=== PATIENT | female | born 1950 | race Caucasian/White ===

== ENCOUNTER 2016-10-23 08:21 | Day surgery (SDC) ==
[2014-02-11 12:14] VITALS: BMI 26.3
[2016-10-23] MEDS ORDERED: DIPRIVAN 20 ML VIAL IVP ONE (10:25)
[2016-10-23 12:15] VITALS: BP 155/85; TEMP 97.7
--- NOTE | 2016-10-24 09:42 | OP ---
INDICATIONS FOR PROCEDURE: 66-year-old female presents for screening colonoscopy exam. She had a colonoscopy greater than 10 years ago. Apparently there is a family history of colon cancer involving her mother, unknown age. MEDICATIONS: SEE ANESTHESIA NOTES. PROCEDURE: COLONOSCOPY, SNARE POLYPECTOMY, BIOPSY, DANTE INK INJECTION. REPORT: The risks, benefits, alternatives and limitations were discussed in detail with the patient. Informed consent was obtained. After adequate sedation was achieved, a digital rectal exam revealed good tone, no masses. The colonoscope was introduced into the rectum and advanced under direct visual guidance to the cecum. The cecum was identified by the appendiceal orifice and IC valve. I then slowly withdrew the scope in a circumferential manner examining the mucosa quite carefully. I looked on the proximal and distal side of folds and flexures as best as possible. At the hepatic flexure there is a small 6 mm sessile polyp that I removed by snare technique. In the proximal mid transverse colon area there is a raised polyp with what appeared to be central polyp changes. The changes were worrisome for malignant change. This large polyp was not amenable to colonoscopic removal. I biopsied it several times for histological review. I then injected Dante ink on opposite quesada about 1 to 2 cm proximal and again 1 to 2 cm distal to the lesion. I withdrew the scope through the remaining colon noting diverticulosis in the sigmoid area. No other abnormalities noted including on retroflex view of the anal canal. The prep was good. The withdrawal time is 13 minutes and 20 seconds. The patient tolerated the procedure well with stable vital signs and pulse oximetry throughout. IMPRESSION: 1. LARGE APPROXIMATELY 2 CM POLYP NOT AMENABLE TO REMOVAL BY COLONOSCOPIC TECHNIQUE IN THE PROXIMAL MID TRANSVERSE COLON AREA. THIS WAS BIOPSIED AND MARKED WITH DANTE INK. 2. SMALL POLYP REMOVED FROM THE HEPATIC FLEXURE. 3. DIVERTICULOSIS. RECOMMENDATIONS: 1. Await pathology results. 2. Referral to surgery for surgical removal of the large polyp. 3. Repeat colonoscopy examination again in one year. 4. Will see her back in the office as needed and in one year. She will contact us if she has any difficulty getting in to see the surgeon or any other concerns. She will also continue followup with her primary care physician. cc: Dr. Dequan SHEFFIELD
== END 2016-10-23 12:32 | disposition home or self-care (01) ==
LOC: SURG 08:21
PROVIDERS: ATTEND Internal Medicine Gastroenterology
DX: Z12.11 Encounter for screening for malignant neoplasm of colon (principal); D12.3 Benign neoplasm of transverse colon; K57.30 Diverticulosis of large intestine without perforation or abscess without bleeding; Z80.0 Family history of malignant neoplasm of digestive organs

== ENCOUNTER 2017-03-28 11:39 | Outpatient (CLI) ==
[2014-02-11 12:14] VITALS: BMI 26.3
[2017-03-28 12:49] LABS: BASOPHILS # (AUTO) 0.1 K/uL (0-0.2); EOSINOPHILS # (AUTO) 0.2 K/ul (0.0-0.7); EOSINOPHILS % (AUTO) 2.9 % (0.0-7.0); HEMATOCRIT 40.4 % (37.0-47.0); HEMOGLOBIN 13.4 g/dl (12.0-16.0); IMMATURE GRANULOCYTE % (AUTO) 0.2 % (0.0-5.0); LYMPHOCYTES # (AUTO) 2.1 K/uL (0.60-3.4); MEAN CORPUSCULAR HEMOGLOBIN 31.3 pg (27.0-31.0); MEAN CORPUSCULAR HGB CONC 33.2 (31.8-35.4); MEAN CORPUSCULAR VOLUME 94.4 fl (81.0-99.0); MONOCYTES # (AUTO) 0.4 K/uL (0.4-2.0); MONOCYTES % (AUTO) 7.4 (0-10); NEUTROPHILS # (AUTO) 2.5 K/ul (2.0-6.9); NEUTROPHILS % (AUTO) 48.5; PLATELET COUNT 286 10^3/uL (140-440); RED BLOOD COUNT 4.28 10^6/ul (4.20-5.40); WHITE BLOOD COUNT 5.15 K/ul (4.6-10.2)
[2017-03-28 13:04] LABS: ALBUMIN 3.9 g/dL (3.4-5.0); ALBUMIN/GLOBULIN RATIO 1.26; ANION GAP 14.1; BILIRUBIN,TOTAL 0.65 mg/dL (0.00-1.20); BUN/CREATININE RATIO 15.21; CALCIUM 9.3 mg/dL (8.2-10.2); CHOL/HDL RATIO 3.3 (4.5-5.5); CREATININE 0.92 mg/dL (0.60-1.30); POTASSIUM 4.1 mmol/L (3.5-5.10)
[2017-03-28 16:51] LABS: ADD URINE MICROSCOPIC YES; BILIRUBIN,URINE Negative (NEGATIVE); KETONES,URINE Negative (NEGATIVE); LEUKOCYTE ESTERASE ,URINE Negative (NEGATIVE); NITRITE,URINE Negative (NEGATIVE); PROTEIN,URINE Negative (NEGATIVE); URINE, BLOOD Trace-intact (NEGATIVE)
== END 2017-03-28 11:40 | disposition home or self-care (01) ==
LOC: LAB 11:39
PROVIDERS: ATTEND General Practice
DX: E78.5 Hyperlipidemia, unspecified (principal); I26.99 Other pulmonary embolism without acute cor pulmonale; I82.401 Acute embolism and thrombosis of unspecified deep veins of right lower extremity; Z79.899 Other long term (current) drug therapy
CPT/HCPCS: 36415; 80053; 80061; 81001; 85025

== ENCOUNTER 2017-04-01 10:59 | Outpatient (CLI) ==
[2014-02-11 12:14] VITALS: BMI 26.3
--- NOTE | 2017-04-01 11:48 | DI ---
EXAM: Radiographs, cervical spine HISTORY: Initial presentation for neck pain following a fall. COMPARISON: None available. TECHNIQUE: Six views. FINDINGS: There is straightening of the normal lordosis. Alignment is normal. There is moderate l oss of disc height at C5-6 and C6-7 with associated endplate osteophyte formation. Uncovertebral hy pertrophy and facet arthropathy also present, greatest at C5-6 and C6-7. No fracture or subluxation identified. Prevertebral soft tissues are unremarkable. Atherosclerotic calcifications noted. [place] g apices are clear. IMPRESSION: Multilevel degenerative changes without acute fracture.
== END 2017-04-01 11:00 ==
LOC: RAD 10:59
PROVIDERS: ATTEND General Practice
DX: M54.2 Cervicalgia (principal); M50.20 Other cervical disc displacement, unspecified cervical region; W19.XXXA Unspecified fall, initial encounter

== ENCOUNTER 2017-09-12 10:07 | Outpatient (CLI) ==
[2014-02-11 12:14] VITALS: BMI 26.3
--- NOTE | 2017-09-13 10:31 | MAMMO ---
EXAM: Bilateral digital screening mammogram (2-D and 3-D) History: Screening Comparison: Bilateral mammogram 08/27/2016 Findings: MLO and CC views of bilateral breasts demonstrate scattered fibroglandular breast parenchy ma. CAD was reviewed by the radiologist. Tomosynthesis was performed. Stable benign bilateral law st calcifications. There are no dominant masses, no suspicious microcalcifications and no architectu ral distortions Impression: Benign stable mammogram. Recommend followup routine screening mammography in 1 year. BIRADS 2
== END 2017-09-12 10:08 | disposition home or self-care (01) ==
LOC: RAD 10:07
PROVIDERS: ATTEND General Practice
DX: Z12.31 Encounter for screening mammogram for malignant neoplasm of breast (principal)
CPT/HCPCS: 77067

== ENCOUNTER 2017-10-02 13:20 | Outpatient (CLI) ==
[2014-02-11 12:14] VITALS: BMI 26.3
[2017-10-02 13:31] LABS: BASOPHILS % (AUTO) 0.4 % (0.0-3.0); EOSINOPHILS # (AUTO) 0.1 K/ul (0.0-0.7); EOSINOPHILS % (AUTO) 1.8 % (0.0-7.0); HEMATOCRIT 38.2 % (37.0-47.0); HEMOGLOBIN 13.1 g/dl (12.0-16.0); IMMATURE GRANULOCYTE % (AUTO) 0.2 % (0.0-5.0); LYMPHOCYTES # (AUTO) 2.2 K/uL (0.60-3.4); LYMPHOCYTES % (AUTO) 43.4 (10.0-50.0); MEAN CORPUSCULAR HEMOGLOBIN 32.8 pg (27.0-31.0); MEAN CORPUSCULAR HGB CONC 34.3 (31.8-35.4); MEAN CORPUSCULAR VOLUME 95.5 fl (81.0-99.0); MONOCYTES # (AUTO) 0.4 K/uL (0.4-2.0); MONOCYTES % (AUTO) 8.5 (0-10); NEUTROPHILS # (AUTO) 2.3 K/ul (2.0-6.9); NEUTROPHILS % (AUTO) 45.7; PLATELET COUNT 253 10^3/uL (140-440); WHITE BLOOD COUNT 5.07 K/ul (4.6-10.2)
[2017-10-02 13:44] LABS: ALBUMIN 3.7 g/dL (3.4-5.0); ALBUMIN/GLOBULIN RATIO 1.16; ANION GAP 9.7; BILIRUBIN,TOTAL 0.7 mg/dL (0.00-1.20); BUN/CREATININE RATIO 8.79; CALCIUM 9.2 mg/dL (8.2-10.2); CREATININE 0.91 mg/dL (0.60-1.30); POTASSIUM 3.7 mmol/L (3.5-5.10); TOTAL PROTEIN 6.9 g/dL (5.8-8.1)
== END 2017-10-02 13:21 | disposition home or self-care (01) ==
LOC: LAB 13:20
PROVIDERS: ATTEND General Practice
DX: E78.5 Hyperlipidemia, unspecified (principal); K21.9 Gastro-esophageal reflux disease without esophagitis; C18.9 Malignant neoplasm of colon, unspecified; R31.29 Other microscopic hematuria; I26.99 Other pulmonary embolism without acute cor pulmonale; Z79.899 Other long term (current) drug therapy
CPT/HCPCS: 36415; 80053; 80061; 85025

== ENCOUNTER 2017-10-09 10:36 | Outpatient (CLI) ==
[2014-02-11 12:14] VITALS: BMI 26.3
== END 2017-10-09 10:37 | disposition home or self-care (01) ==
LOC: LAB 10:36
PROVIDERS: ATTEND General Practice
DX: R35.0 Frequency of micturition (principal); R39.15 Urgency of urination
CPT/HCPCS: 81001; 87086

== ENCOUNTER 2017-12-24 12:42 | Outpatient (CLI) ==
[2014-02-11 12:14] VITALS: BMI 26.3
--- NOTE | 2017-12-24 13:33 | CT ---
EXAM: CT Abdomen without contrast. CT Pelvis without contrast. HISTORY: Left lower quadrant pain. Frequent urination. COMPARISON: 08/25/2012. TECHNIQUE: Multiple axial images of the abdomen and pelvis were obtained without intravenous contras t. Images were reformatted in the sagittal and coronal plane. FINDINGS: Please note that evaluation of the abdominal and pelvic structures is limited due to lack of intravenous contrast. Right lower lobe calcified granuloma noted. Degenerative changes noted in the spine. Old mild super ior endplate compression deformity of L1 is present. Gallbladder is absent. The liver, pancreas, spleen, and adrenal glands demonstrate normal contour. Punctate nonobstructing left lower pole renal calculus is present. There is no hydronephrosis. Probable duodenal diverticuli. Umbilical hernia contains a loop of small bowel. There is no evidenc e for bowel obstruction. Staple line seen in the right colon. Mild colonic diverticulosis noted. [place] ty demonstrates normal contour. Urinary bladder is collapsed. No free fluid or free air identified . Atherosclerotic calcifications are present. IMPRESSION: 1. Left nephrolithiasis without obstructive uropathy. 2. Mild diverticulosis. 3. Umbilical hernia containing a loop of small bowel. No evidence for bowel obstruction.
== END 2017-12-24 12:43 | disposition home or self-care (01) ==
LOC: RAD 12:42
PROVIDERS: ATTEND General Practice
DX: R31.29 Other microscopic hematuria (principal); R10.32 Left lower quadrant pain
CPT/HCPCS: 81001; 87086

== ENCOUNTER 2017-12-24 16:22 | Outpatient (POV) ==
[2014-02-11 12:14] VITALS: BMI 26.3
== END 2017-12-24 16:23 | disposition home or self-care (01) ==
LOC: OUTPT 16:22
PROVIDERS: ATTEND General Practice
DX: R31.29 Other microscopic hematuria (principal); R10.32 Left lower quadrant pain
CPT/HCPCS: 81001; 87086

== ENCOUNTER 2017-12-31 14:20 | Outpatient (CLI) ==
[2014-02-11 12:14] VITALS: BMI 26.3
== END 2017-12-31 14:21 | disposition home or self-care (01) ==
LOC: FCC-LAB 14:20
PROVIDERS: ATTEND General Practice
DX: R31.29 Other microscopic hematuria (principal)
CPT/HCPCS: 81001

== ENCOUNTER 2018-03-31 11:01 | Outpatient (CLI) | payer OTHER ==
[2014-02-11 12:14] VITALS: BMI 26.3
== END 2018-03-31 11:02 | disposition home or self-care (01) ==
LOC: FCC-LAB 11:01
PROVIDERS: ATTEND General Practice
DX: E78.5 Hyperlipidemia, unspecified (principal); R31.29 Other microscopic hematuria; Z79.899 Other long term (current) drug therapy
CPT/HCPCS: 36415; 80053; 81001; 85025

== ENCOUNTER 2018-04-03 11:06 | Outpatient (CLI) ==
[2014-02-11 12:14] VITALS: BMI 26.3
== END 2018-04-03 11:07 | disposition home or self-care (01) ==
LOC: FCC-LAB 11:06
PROVIDERS: ATTEND General Practice
DX: R82.90 Unspecified abnormal findings in urine (principal)
CPT/HCPCS: 81001

== ENCOUNTER 2018-08-13 14:17 | Outpatient (CLI) | payer OTHER ==
[2014-02-11 12:14] VITALS: BMI 26.3
--- NOTE | 2018-08-14 09:00 | DI ---
EXAM: Three views of the right foot. History: Right foot pain. Findings: No acute fracture or dislocation. Moderate to severe narrowing of the first MTP joint wit h marginal sclerosis and osteophyte formation. Small plantar spur. There is medial soft tissue swel ling at the ankle. Impression: 1. No acute osseous abnormality. 2. 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 3. Medial soft tissue swelling at the ankle. 4. Small plantar spur
== END 2018-08-13 14:18 | disposition home or self-care (01) ==
LOC: RHC-LAB 14:17 → RAD 14:18
PROVIDERS: ATTEND General Practice
DX: M79.671 Pain in right foot (principal)

== ENCOUNTER 2018-11-21 15:31 | Outpatient (CLI) ==
[2014-02-11 12:14] VITALS: BMI 26.3
== END 2018-11-21 15:32 | disposition home or self-care (01) ==
LOC: RHC-LAB 15:31
PROVIDERS: ATTEND General Practice
DX: R05 Cough (principal); R19.7 Diarrhea, unspecified
CPT/HCPCS: 87502

== ENCOUNTER 2018-11-24 09:22 | Outpatient (CLI) ==
[2014-02-11 12:14] VITALS: BMI 26.3
== END 2018-11-24 09:23 | disposition home or self-care (01) ==
LOC: LAB 09:22
PROVIDERS: ATTEND General Practice
DX: R19.7 Diarrhea, unspecified (principal)
CPT/HCPCS: 87493

== ENCOUNTER 2018-12-23 07:55 | Outpatient (CLI) ==
[2014-02-11 12:14] VITALS: BMI 26.3
== END 2018-12-23 07:56 | disposition home or self-care (01) ==
LOC: RHC-LAB 07:55
PROVIDERS: ATTEND General Practice
DX: E78.5 Hyperlipidemia, unspecified (principal); Z79.899 Other long term (current) drug therapy
CPT/HCPCS: 36415; 80053; 80061; 81001; 85025

== ENCOUNTER 2019-03-27 15:37 | Outpatient (CLI) ==
[2014-02-11 12:14] VITALS: BMI 26.3
== END 2019-03-27 15:38 | disposition home or self-care (01) ==
LOC: LAB 15:37
PROVIDERS: ATTEND General Practice
DX: H05.229 Edema of unspecified orbit (principal); H57.9 Unspecified disorder of eye and adnexa
CPT/HCPCS: 36415; 80053; 85025

== ENCOUNTER 2025-08-06 14:40 | Inpatient (IN) ==
[2025-08-06 15:30] LABS: IMMATURE GRANULOCYTE # (AUTO) 0.0 (0.0-1.0); IMMATURE GRANULOCYTE % (AUTO) 0.2 % (0.0-5.0); RDW COEFFICIENT OF VARIATION 12.8 % (11.6-14.8)
[2025-08-06 15:41] LABS: CREATININE 1.82 mg/dL (0.60-1.30)
[2025-08-06] MEDS: INFUVITE ADULT 10 ML in DEXTROSE 5%-NS IV SOLUTION 1,000 ML IV SCH (16:04)
[2025-08-06] MEDS: PEPCID IVP ONE (16:09)
[2025-08-06] MEDS: ZOFRAN SDV IVP STA (16:09)
[2025-08-06 18:01] LABS: CREATININE 1.53 mg/dL (0.60-1.30)
[2025-08-06] MEDS: INFUVITE ADULT IV ONE (18:01)
[2025-08-06 18:28] LABS: MOLECULAR FLU A NEGATIVE BY NAAT (NEGATIVE); MOLECULAR FLU B NEGATIVE BY NAAT (NEGATIVE); SARS COV-2 RNA RAPID NAAT NEGATIVE (NEGATIVE)
--- NOTE | 2025-08-06 19:34 | ED.PDOC ---
General HPI ED Provider: Dr. ROCAEL FUENTES DO Chief Complaint: Dizziness Stated Complaint: 75-year-old female presents to the ER for second day in a row reporting persistent nausea vomiting and diarrhea. She was treated symptomatically and discharged after she improved but returns today with lightheadedness and persistent diarrhea. Denies hematochezia, melena, hemoptysis or hematemesis. Medical history reviewed in chart. Denies fever Time Seen by Provider: 08/06/25 14:46 Information Source: Patient Primary Care Provider: CECE WARNER Nursing and Triage Documentation Reviewed and Agree: Yes Opioid Naive vs. Tolerant What is Opioid Naive?: *Opioid Naive implies the patient is not already taking opioids or not chronically receiving opioids on a daily basis. *PRN dosing is not "usually" associated with tolerance. *Patients are at higher risk of over-sedation and aspiration. What is Opioid Tolerant?: *Opioid Tolerance implies less than the expected response to an opioid. *Acquired tolerance is defined by the patient taking 60mg of oral morphine daily (or equianalgesic dose of another opioid) for 1 week or more. *Often associated with chronic pain. *May take more than usual dose to achieve desired pain control. Review of Systems Review Of Systems Constitutional: Reports No symptoms All Other Systems: Reviewed and Negative [facility] Medical History Gastroesophageal reflux disease K21.9 - Gastro-esophageal reflux disease without esophagitis (ICD-10) Prediabetes R73.03 - Prediabetes (ICD-10) Cervical disc herniation M50.20 - Other cervical disc displacement, unspecified cervical region (ICD- 10) PE (pulmonary thromboembolism) I26.99 - Other pulmonary embolism without acute cor pulmonale (ICD-10) DVT (deep venous thrombosis) I82.409 - Acute embolism and thrombosis of unspecified deep veins of unspecified lower extremity (ICD-10) Family History Mother Cancer Colon FATHER Hypertension SISTER Afib Hypertension Social History Smoking and tobacco status: Never smoker Second hand smoke exposure: Yes Alcohol intake: current Substance use type: does not use Comfort/adventism: Protestant Special comfort needs: No Agree to transfusion: Yes Adopted: No Caregiver/support person: Yes Household members: spouse Lives independently: Yes Financial difficulty paying for basics: not applicable service: No Current occupational status: retired Current occupational exposures/hazards: No Pets and animals: Yes Leisure activites: exercise History of recent travel: No Do you think of yourself as: straight/heterosexual Current gender identity: female Seatbelt use: always Helmet use: No (N/A) 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 Water heater temperature set < 120 degrees: Yes Working smoke detector in home: Yes Fire extinguisher in home: Yes Carbon monoxide detector in home: Yes Surgical History right colon resection 11/2016 Status post cholecystectomy 11/2016 Z90.49 - Acquired absence of other specified parts of digestive tract (ICD- 10) Female Reproductive History Menstrual Hx Hysterectomy: No Hx Tubal Ligation: No Physical Exam Physical Exam Appearance: Reports Well-appearing, No pain distress and Well-nourished Eyes: Reports JARRED, EOMI and Conjunctiva clear ENT: Reports Nose normal and Oropharynx normal Neck: Supple Respiratory: Reports Airway patent and Respirations nonlabored Cardiovascular: Reports RRR and Pulses normal GI/: Reports Soft and Nontender Musculoskeletal: Reports Normal strength and ROM intact Skin: Reports Warm, Dry and Normal color Neurological: Reports Sensation intact, Motor intact, Alert and Oriented Psychiatric: Reports Affect appropriate and Mood appropriate Interpretation EKG Interpretation EKG Interpretation By: ED Physician Time of EKG #1: 15:22 Rate: Tachy (100) Rhythm: Sinus Ectopy: PACs Apex: Left ST Segment: Normal Interpretation: Nonischemic Re-Evaluation Re-Evaluation Additional Comments: 75-year-old female returns to the ER with persistent diarrhea and lightheadedness. Suspect dehydration. Labs do suggest dehydration with acute kidney injury. Workup reviewed from yesterday where the patient had labs and CT imaging done. I do not feel repeat imaging is necessary as she is otherwise afebrile nontoxic. Doubt sepsis vital signs stable. Given the WES, aggressively treated with IV fluids and rechecked with some improvement but not resolution. Patient was given a banana bag. She states that she was feeling better. She has had episodes of diarrhea in the ER. No recent antibiotic use. Doubt C. difficile. Suspect viral enteritis. Discussed with hospital service who is agreeable for admission for observation Physician Progress Note Physician Progress Note: All EKGs and plain film imaging independently reviewed and interpreted by me unless stated otherwise. CTs interpreted by radiology unless otherwise stated. All pediatric patients are accompanied by parent or legal guardian as primary historian and/or validate patient report unless otherwise stated. Course Course 08/06/25 15:23 08/06/25 17:45 Orders, Labs, Meds: Lab Review 08/06/25 08/06/25 08/06/25 15:23 17:45 17:57 WBC 9.13 RBC 4.23 Hgb 13.8 Hct 41.3 MCV 97.6 MCH 32.6 H MCHC 33.4 RDW Coeff of Jose 12.8 Plt Count 240 Immature Gran % (Auto) 0.2 Neut % (Auto) 81.1 H Lymph % (Auto) 8.9 L [place] % (Auto) 8.4 Eos % (Auto) 1.3 Baso % (Auto) 0.1 Neut # (Auto) 7.4 H Lymph # (Auto) 0.8 [place] # (Auto) 0.8 Eos # (Auto) 0.1 Baso # (Auto) 0.0 Immature Gran # (Auto) 0.0 Sodium 130.1 L 130.5 L Potassium 3.29 L 3.10 L Chloride 99.9 102.8 Carbon Dioxide 17.8 L D 19.9 L Anion Gap 15.69 10.90 BUN 19.1 H 19.2 H Creatinine 1.82 H D 1.53 H Estimated GFR (MDRD) 27.00 33.00 BUN/Creatinine Ratio 10.49 12.54 Glucose 129.0 H 213.7 H D Calcium 9.48 8.64 Magnesium 1.61 Total Bilirubin 1.10 AST 28.2 ALT 16.4 Alkaline Phosphatase 85.1 Total Protein 8.23 H Albumin 4.93 Globulin 3.30 Albumin/Globulin Ratio 1.49 Influ A Molecular Assay Negative by naat Influ B Molecular Assay Negative by naat SARS CoV-2 RNA Rapid SYEDA Negative Orders Category Date Time Status ADMIT OBSERVATION [PLACE PATIENT OBSERVATION] .TO ADMISSION 08/06/25 18:50 Active MEDSURG (MONITORED BED) EKG-(ED & IP/OBS ONLY) Stat CARDIO 08/06/25 15:10 Completed TELEMETRY MONITORING TELE CARE 08/06/25 18:50 Active IV [ED IV/MEDIPORT/POWERPORT] .ONCE EMERGENCY 08/06/25 15:10 Active BMP [BASIC METABOLIC PANEL] Stat LAB 08/06/25 17:45 Completed CBC W/ AUTO DIFF Stat LAB 08/06/25 15:23 Completed CMP [COMPREHENSIVE METABOLIC PANEL] Stat LAB 08/06/25 15:23 Completed COVID [SARS COV-2 RNA RAPID SYEDA] Stat LAB 08/06/25 17:57 Completed FLU A & B MOLECULAR [FLU A/B MOLECULAR] Stat LAB 08/06/25 17:57 Completed MAGNESIUM Stat LAB 08/06/25 15:23 Completed URINALYSIS C & S IF INDICATED Stat LAB 08/06/25 15:10 Uncollected 0.9 % Sodium Chloride [Saline Flush] Meds 08/06/25 15:09 Active 1 syr IVF PRN PRN Dextrose 5 % and 0.9 % NaCl [Dextrose 5%-Ns IV Solution Meds 08/06/25 15:30 Active ] 1,000 ml Mvi, Adult No.1 with Vit K [Infuvite Adult] 10 ml IV 1,000 mls/hr Famotidine Inj [Pepcid] Meds 08/06/25 15:09 Discontinued 20 mg IVP ONCE ONE Mvi, Adult No.1 with Vit K [Infuvite Adult] Meds 08/06/25 15:52 Discontinued 10 ml IV .STK-MED ONE Ondansetron HCl/Pf [Zofran Sdv] Meds 08/06/25 15:09 Discontinued 4 mg IVP ONCE STA Medications Generic Name Dose Route Start Last Admin Trade Name Freq PRN Reason Stop Dose Admin Multivitamins/Minerals 10 ml/ 1,010 mls @ 1,000 mls/hr 08/06/25 15:30 08/06/25 16:04 Dextrose/Sodium Chloride IV 1,000 mls/hr .Q1H1M KARI Administration Sodium Chloride 1 syr 08/06/25 15:09 0.9% Sodium Chloride 10 Ml Disp.Syrin IVF PRN PRN To flush IV Discontinued Medications Generic Name Dose Route Start Last Admin Trade Name Freq PRN Reason Stop Dose Admin Famotidine 20 mg 08/06/25 15:09 08/06/25 16:09 Famotidine Inj 20 Mg/2 Ml Vial IVP 08/06/25 15:10 20 mg ONCE ONE Administration Ondansetron HCl 4 mg 08/06/25 15:09 08/06/25 16:09 Ondansetron Hcl/Pf 4 Mg/2 Ml Sdv IVP 08/06/25 15:10 4 mg ONCE STA Administration Vital Signs: Temp Pulse Resp BP Pulse Ox 08/06/25 14:44 97.1 F L 100 16 126/73 96 Discharge Plan Discharge Patient Disposition: PLACED OBSERVATION Discharge Problem: Diarrhea, Enteritis, WES (acute kidney injury), Lightheadedness Did you review [place] [employer] for ALL controlled substances?: Not Applicable ED Provider: ROCAEL FUENTES Condition: Stable
[2025-08-06] MEDS ORDERED: TYLENOL PO PRN (20:28)
[2025-08-06] MEDS: SODIUM CHLORIDE 1,000 ML IV SCH (20:37)
[2025-08-06] MEDS: ZOFRAN SDV IVP PRN (20:48)
[2025-08-06 21:16] VITALS: BMI 21.7
[2025-08-06] MEDS: CRESTOR PO SCH (21:25)
[2025-08-06] MEDS: ELAVIL PO SCH (21:27)
[2025-08-06] MEDS: PROTONIX PO SCH (21:28)
[2025-08-06] MEDS: K-DUR PO ONE (21:28)
[2025-08-06] MEDS: XARELTO PO SCH (21:28)
[2025-08-06] MEDS: IMODIUM PO PRN (21:28)
[2025-08-06] MEDS: NORVASC PO SCH (21:29)
[2025-08-06] MEDS: MAGNESIUM SULF 2 G/50 ML BAG 2 GM/50 ML PIGGYBACK IV ONE (21:29)
[2025-08-07 05:28] LABS: IMMATURE GRANULOCYTE # (AUTO) 0.0 (0.0-1.0); IMMATURE GRANULOCYTE % (AUTO) 0.2 % (0.0-5.0); RDW COEFFICIENT OF VARIATION 12.8 % (11.6-14.8)
[2025-08-07 05:39] LABS: CREATININE 1.55 mg/dL (0.60-1.30)
[2025-08-07] MEDS: POTASSIUM CHLORIDE 20 MEQ/100 ML PREMIX 20 MEQ/100 ML BAG IV ONE (09:48)
--- NOTE | 2025-08-07 10:22 | PCM ---
Date of Service Date Seen by Provider: 08/07/25 Time Seen by Provider: 09:00 Admit Day/Time Admission Date: 08/06/25 Admission Time: 18:50 Reason for Admission Chief Complaint: DEHYDRATION, DIARRHEA, WES Hospital Provider Hospital Provider: SANDRA GONZALEZ PA-C, [facility] Primary Care Physician Primary Care Physician: CECE WARNER History of Present Illness History of Present Illness: Patient is a 75 year old female with a PMH of colon cancer, GERD, DVT, and hyperlipidemia. She originally came to the ER on 08/05 due to nausea, vomiting, and watery diarrhea for 5 days. Labs were normal and abdominal CT showed enterocolitis. Since she was stable she was discharged. She returned to the ER the next day on 08/06 with continuing symptoms along with dizziness and weakness. Labs now showed low sodium, low potassium, and an WES. She was admitted to [facility]. Last night she continued to have diarrhea, getting up every 15-30 minutes to use the bathroom. She had one episode of vomiting at 1 a m. She was able to fall asleep around 1:30 am and had bowel incontinence throughout the night. This morning she has had 4 episodes of watery diarrhea. She denies nausea, abdominal pain, fever, and chills. Case Discussed With Case Discussed With: Patient's case was discussed with the ER Physicians, Dr. Kiser. [facility] Medical History Gastroesophageal reflux disease K21.9 - Gastro-esophageal reflux disease without esophagitis (ICD-10) Prediabetes R73.03 - Prediabetes (ICD-10) Cervical disc herniation M50.20 - Other cervical disc displacement, unspecified cervical region (ICD- 10) PE (pulmonary thromboembolism) I26.99 - Other pulmonary embolism without acute cor pulmonale (ICD-10) DVT (deep venous thrombosis) I82.409 - Acute embolism and thrombosis of unspecified deep veins of unspec ified lower extremity (ICD-10) Surgical History right colon resection 11/2016 Status post cholecystectomy 11/2016 Z90.49 - Acquired absence of other specified parts of digestive tract (ICD- 10) Family History Mother Cancer Colon FATHER Hypertension SISTER Afib Hypertension Social History Smoking and tobacco status: Never smoker Second hand smoke exposure: Yes Alcohol intake: current Substance use type: does not use Comfort/gnosticism: Mormonism Special comfort needs: No Agree to transfusion: Yes Adopted: No Caregiver/support person: Yes Household members: spouse Lives independently: Yes Financial difficulty paying for basics: not applicable service: No Current occupational status: retired Current occupational exposures/hazards: No Pets and animals: Yes Leisure activites: exercise History of recent travel: No Do you think of yourself as: straight/heterosexual Current gender identity: female Seatbelt use: always Helmet use: No (N/A) Drives 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 Water heater temperature set < 120 degrees: Yes Working smoke detector in home: Yes Fire extinguisher in home: Yes Carbon monoxide detector in home: Yes Allergies Allergies Allergy/AdvReac Type Severity Reaction Status Date / Time oxycodone HCl (From Percocet) Allergy Intermediate Swelling Verified 08/06/25 14:59 hydrocodone bitartrate (From Allergy Mild Itching Verified 08/06/25 14:59 Lortab) hydroxyzine HCl (From Allergy Mild Rash Verified 08/06/25 14:59 Vistaril) Sulfa (Sulfonamide Allergy Unknown Unknown Verified 08/06/25 14:59 Antibiotics) butorphanol tartrate (From Allergy Unknown Verified 08/06/25 15:09 Stadol) metronidazole (From Flagyl) Allergy Hives Verified 08/06/25 15:09 Metronidazole HCl (From Allergy Unknown Verified 08/06/25 15:09 Flagyl) Current Medications Home Medications Acetaminophen (Acetaminophen 325 Mg Tablet) 650 mg PO Q4H PRN PRN Reason: Mild Pain Amitriptyline HCl (Amitriptyline Hcl 25 Mg Tablet) 50 mg PO BEDTIME KARI Last Admin: 08/06/25 21:27 Dose: 50 mg Amlodipine Besylate (Amlodipine Besylate 5 Mg Tablet) 2.5 mg PO BEDTIME KARI Last Admin: 08/06/25 21:29 Dose: 2.5 mg Bismuth Subsalicylate (Bismuth Subsalicylate 262 Mg Tab.Chew) 262 mg PO Q6H PRN PRN Reason: Diarrhea Sodium Chloride (Sodium Chloride) 1,000 mls @ 100 mls/hr IV .Q10H KARI Last Admin: 08/07/25 08:45 Dose: 100 mls/hr Loperamide HCl (Loperamide Hcl 2 Mg Tablet) 2 mg PO AFTER LOOSE STOOLS PRN PRN Reason: Diarrhea Last Admin: 08/07/25 06:10 Dose: 2 mg Ondansetron HCl (Ondansetron Hcl/Pf 4 Mg/2 Ml Sdv) 4 mg IVP Q6H PRN PRN Reason: Nausea / Vomiting Last Admin: 08/06/25 20:48 Dose: 4 mg Pantoprazole Sodium (Pantoprazole Sodium 40 Mg Tablet.Dr) 40 mg PO BEDTIME KARI Last Admin: 08/06/25 21:28 Dose: 40 mg Rivaroxaban (Rivaroxaban 10 Mg Tablet) 10 mg PO BEDTIME KARI Last Admin: 08/06/25 21:28 Dose: 10 mg Rosuvastatin Calcium (Rosuvastatin Calcium 10 Mg Tablet) 5 mg PO BEDTIME KARI Last Admin: 08/06/25 21:25 Dose: 5 mg Sodium Chloride (0.9% Sodium Chloride 10 Ml Disp.Syrin) 1 syr IVF PRN PRN PRN Reason: To flush IV takjsrxe-ene-brkfg acid 0.4 mg-lycopene 300 mcg-lutein 250 mcg tablet (Centrum Silver) 1 tab PO BEDTIME 10/23/16 [History Confirmed 08/06/25] amitriptyline 50 mg tablet 50 mg PO QHS #90 tabs 05/02/21 [Rx Confirmed 08/06/25] rosuvastatin 20 mg tablet See Rx Instructions .Route .COMPLEX #90 tabs 05/02/21 [Rx Confirmed 08/06/25] amlodipine 2.5 mg tablet 2.5 mg PO BEDTIME 08/05/25 [History Confirmed 08/06/25] pantoprazole 40 mg tablet,delayed release 40 mg PO BEDTIME 08/06/25 [History Confirmed 08/06/25] rivaroxaban 10 mg tablet (Xarelto) 10 mg PO BEDTIME 08/06/25 [History Confirmed 08/06/25] Opioid Naive vs. Tolerant Does Patient Take Opioids?: No Is Patient Opioid Naive?: No What is Opioid Naive?: *Opioid Naive implies the patient is not already taking opioids or not chronica lly receiving opioids on a daily basis. *PRN dosing is not "usually" associated with tolerance. *Patients are at higher risk of over-sedation and aspiration. Is Patient Opioid Tolerant?: No What is Opioid Tolerant?: *Opioid Tolerance implies less than the expected response to an opioid. *Acquired tolerance is defined by the patient taking 60mg of oral morphine daily (or equianalgesic dose of another opioid) for 1 week or more. *Often associated with chronic pain. *May take more than usual dose to achieve desired pain control. Review of Systems Constitutional: Reports Fatigue and Weakness; Denies Fever, Recent Weight Loss or Chills Head: Reports Normocephalic and Atraumatic Eyes: Denies Blurred vision Cardiovascular: Denies Chest pain Respiratory: Denies Cough or Shortness of air Gastrointestinal: Reports Nausea, Vomiting and Diarrhea; Denies Hematemesis, Hematochezia, Constipation, [place] Stools or Abdominal pain Genitourinary: Reports Incontinent Bowel; Denies Dysuria or Frequency Neurological: Denies Headache or Dizziness Physical examination Most Recent Vital Signs: Most Recent Vital Signs Temperature 96.7 F L 08/07/25 10:00 Temperature Source Tympanic 08/07/25 10:00 Temperature Source Infrared 08/06/25 14:44 Pulse Rate 78 08/07/25 10:00 Respiratory Rate 20 08/07/25 10:00 Blood Pressure 126/66 08/07/25 10:00 Blood Pressure Mean 86 08/07/25 10:00 Blood Pressure Left Arm 114/82 08/06/25 20:15 Blood Pressure Location Left Arm 08/07/25 10:00 Blood Pressure Position Supine 08/07/25 10:00 O2 Sat by Pulse Oximetry 95 08/07/25 10:00 Oxygen Delivery Method Room Air 08/07/25 10:00 Height 5 ft 8 in 08/06/25 20:15 Weight 64.7 kg 08/06/25 20:15 Telemetry Type Remote Telemetry 08/07/25 07:00 Telemetry Monitoring Continues 08/07/25 07:00 Telemetry Heart Rate 71 08/07/25 07:00 EKG WI Interval 0.16 08/07/25 07:00 EKG QRS Interval 0.10 08/07/25 07:00 Telemetry Strip Reading SR 08/07/25 07:00 Appearance: Positive No Apparent Distress, Alert and Oriented x3 and Ill- Appearing Skin: Positive [place] and Warm; Negative Good Turgor HEENT: Positive Normocephalic and Atraumatic; Negative Oral Mucous Moist Neck: Positive Supple Chest/Lungs: Positive Symmetrical With Equal Breath Sounds, Clear to Auscultation Bilaterally and Good Air Movement all 4 Lung [place]; Negative Rales, Rhonci or Wheezes Heart: Positive RRR; Negative Tachycardia or Bracycardia GI/: Positive Soft, Nontender, Bowel Sounds Normal and No Distention Extremities: Negative Edema Neurological: Positive Sensation Intact, Motor intact, Cranial Nerves Intact, Alert and Oriented Psychiatric: Positive Oriented x4, Appropriate Mood and Appropriate Affect Labs This Visit Labs This Visit: Labs This Visit 08/06/25 08/06/25 08/06/25 15:23 17:45 17:57 WBC 9.13 RBC 4.23 Hgb 13.8 Hct 41.3 MCV 97.6 MCH 32.6 H MCHC 33.4 RDW Coeff of Jose 12.8 Plt Count 240 Immature Gran % (Auto) 0.2 Neut % (Auto) 81.1 H Lymph % (Auto) 8.9 L [place] % (Auto) 8.4 Eos % (Auto) 1.3 Baso % (Auto) 0.1 Neut # (Auto) 7.4 H Lymph # (Auto) 0.8 [place] # (Auto) 0.8 Eos # (Auto) 0.1 Baso # (Auto) 0.0 Immature Gran # (Auto) 0.0 Sodium 130.1 L 130.5 L Potassium 3.29 L 3.10 L Chloride 99.9 102.8 Carbon Dioxide 17.8 L D 19.9 L Anion Gap 15.69 10.90 BUN 19.1 H 19.2 H Creatinine 1.82 H D 1.53 H Estimated GFR (MDRD) 27.00 33.00 BUN/Creatinine Ratio 10.49 12.54 Glucose 129.0 H 213.7 H D Calcium 9.48 8.64 Magnesium 1.61 Total Bilirubin 1.10 AST 28.2 ALT 16.4 Alkaline Phosphatase 85.1 Total Protein 8.23 H Albumin 4.93 Globulin 3.30 Albumin/Globulin Ratio 1.49 Influ A Molecular Assay Negative by naat Influ B Molecular Assay Negative by naat SARS CoV-2 RNA Rapid SYEDA Negative 08/07/25 05:17 WBC 4.74 RBC 3.96 L Hgb 12.8 Hct 39.0 MCV 98.5 MCH 32.3 H MCHC 32.8 RDW Coeff of Jose 12.8 Plt Count 212 Immature Gran % (Auto) 0.2 Neut % (Auto) 70.9 Lymph % (Auto) 10.3 [place] % (Auto) 17.1 H Eos % (Auto) 1.3 Baso % (Auto) 0.2 Neut # (Auto) 3.4 Lymph # (Auto) 0.5 L [place] # (Auto) 0.8 Eos # (Auto) 0.1 Baso # (Auto) 0.0 Immature Gran # (Auto) 0.0 Sodium 133.0 L Potassium 3.37 L Chloride 106.7 Carbon Dioxide 18.6 L Anion Gap 11.07 BUN 21.8 H Creatinine 1.55 H Estimated GFR (MDRD) 33.00 BUN/Creatinine Ratio 14.06 Glucose 124.1 H D Calcium 8.97 Magnesium Total Bilirubin 0.89 AST 26.0 ALT 13.0 Alkaline Phosphatase 70.4 Total Protein 7.04 Albumin 4.20 Globulin 2.84 Albumin/Globulin Ratio 1.47 Influ A Molecular Assay Influ B Molecular Assay SARS CoV-2 RNA Rapid SYEDA Microbiology This Visit 08/06/25 21:55 Stool C. difficile DNA Amplification - Final Imaging Imaging: EXAM: CT ABDOMEN AND PELVIS WITHOUT CONTRAST HISTORY: Nausea, emesis, diarrhea. History of right colon cancer status post resection. TECHNIQUE: CT acquisition of the abdomen and pelvis from the lower thorax through the pelvis without IV contrast administration. 2-D coronal and sagittal reformatted images were obtained from the axial source images. Limited diagnostic sensitivity without contrast. Oral Contrast: None. CT Dose Reduction Techniques Performed: Yes. COMPARISON: 12/24/2017. FINDINGS: CT Abdomen: Lung bases are clear. Calcified plaque in a normal caliber aorta. Gallbladder is surgically absent. No associated biliary ductal dilatation. Postoperative prominence of the common bile duct approximating 11 mm without evidence of choledocholithiasis. Stable nonobstructing left intrarenal calculus. More conspicuous 1.4 cm left renal cortical cyst. The proximal urinary tract otherwise appears unremarkable. Normal caliber fluid-filled loops of small bowel with minimal prominence of the bowel wall. Partial fluid-filled appearance of a normal caliber colon. Changes of right colectomy. Otherwise normal caliber and distribution of intraabdominal bowel without ascites or free air. Abdominal and retroperitoneal contents otherwise appear normal. No adenopathy. Stable degenerative spine changes. CT Pelvis: Distal urinary tract appears unremarkable. Grossly normal appearance of the uterus and adnexal structures. Uncomplicated diverticular changes. Partial fluid-filled appearance of the colon. Otherwise normal caliber and distribution of intrapelvic bowel without ascites or free air. Pelvic and retroperitoneal contents appears stable without adenopathy. Interval approximately 20% uniform loss of vertebral body height at L5. Bone alignment is maintained. Stable degenerative changes. IMPRESSION: 1. Probable components of nonspecific enterocolitis with fluid-filled loops of small and large bowel. No evidence of mechanical bowel obstruction, ascites or free air. 2. Stable changes of right colectomy with an intact right abdominal bowel anastomosis. 3. Stable nonobstructive left nephrolithiasis with more conspicuous 1.4 cm probable simple left renal cortical cyst. 4. Interval appearance of a uniform approximately 20% compression deformity at L5 with chronic appearing bone changes. 5. Calcified atherosclerosis without additional acute process identified. Review Statement Review Statement: I have independently reviewed and interpreted the labs/EKGs/imaging that were ordered by the ER provider. I have reviewed all outside records that are available currently in our EMR including imaging/notes/labs from previous visits. Plan Plan: 1. Acute gastroenteritis - IV fluids, imodium PRN, zofran PRN, clear liquids. CT a/p was nonspecific with signs of enterocolitis. C diff negative. O&P and stool culture pending. No recent travel, abx, or sick contacts. 2. Acute kidney injury, stage 1 due to dehydration - Improving but not at baseline, cont IV fluids. 3. Hypokalemia - Replacing potassium IV 4. Hyponatremia - due to dehydration. Improved. Continue NS 5. GERD - Continue home meds 6. Hyperlipidemia - Continue home meds 7. Hypertension - Continue home meds 8. History of DVT - Continue home meds 9. Insomnia - Continue home meds DVT Prophylaxis: Xarelto Time Spent: Greater than 80 minutes spent with patient, 50% of the time spent with this patient was devoted to counseling and coordination of care. [facility] minutes spent discussing advance care planning. Admit to: Obs, made inpatient today due to multiple BMs, renal function not yet at baseline, requiring IV fluids Discussed Plan of Care with Dr. Brooke Vallejo. Medications Medication Orders: Medications Ordered Category Date Time Status 0.9 % Sodium Chloride [Saline Flush] Meds 08/06/25 15:09 Active 1 syr IVF PRN PRN Acetaminophen [Tylenol] Meds 08/06/25 20:28 Active 650 mg PO Q4H PRN Amitriptyline HCl [Elavil] Meds 08/06/25 21:00 Active 50 mg PO BEDTIME Amlodipine Besylate [Norvasc] Meds 08/06/25 21:00 Active 2.5 mg PO BEDTIME Bismuth Subsalicylate [Pepto-Bismol Chew] Meds 08/06/25 20:42 Active 262 mg PO Q6H PRN Loperamide HCl [Imodium] Meds 08/06/25 20:42 Active 2 mg PO AFTER LOOSE STOOLS PRN Ondansetron HCl/Pf [Zofran Sdv] Meds 08/06/25 20:05 Active 4 mg IVP Q6H PRN Pantoprazole Sodium [Protonix] Meds 08/06/25 21:00 Active 40 mg PO BEDTIME Potassium Chloride [Potassium Chloride 20 Meq/100 ml Meds 08/07/25 09:07 Active Premix] 20 meq in 100 ml IV ONCE Rivaroxaban [Xarelto] Meds 08/06/25 21:00 Active 10 mg PO BEDTIME Rosuvastatin Calcium [Crestor] Meds 08/06/25 21:00 Active 5 mg PO BEDTIME Sodium Chloride 0.9% [Sodium Chloride] 1,000 ml Meds 08/06/25 20:30 Active IV 100 mls/hr
[2025-08-07] MEDS: PEPTO-BISMOL CHEW PO PRN (15:04)
[2025-08-08 05:22] LABS: RDW COEFFICIENT OF VARIATION 12.9 % (11.6-14.8)
[2025-08-08 05:34] LABS: CREATININE 1.2 mg/dL (0.60-1.30)
[2025-08-08 05:37] LABS: BAND NEUTROPHILS % (MANUAL) 15.0 % (0.0-5.0); EOSINOPHILS % (MANUAL) 1.0 % (0.0-5.0); LYMPHOCYTES % (MANUAL) 12.0 % (10.0-50.0); METAMYELOCYTES %(MANUAL) 2.0 % (0.0-2.0); MONOCYTES % (MANUAL) 21.0 % (0.0-10.0); NEUTROPHILS % (MANUAL) 49.0 % (42.2-75.2)
[2025-08-08] MEDS: K-DUR PO ONE (09:48)
--- NOTE | 2025-08-08 10:27 | PCM.PROG ---
Date/Time Seen Date Seen by Provider: 08/08/25 Time Seen by Provider: 09:30 Provider [facility] Chief Complaint Chief Complaint: DEHYDRATION, DIARRHEA, WES Subjective Subjective: Patient reports having a rough night. States she was up to the bathroom after 0100 at least 6 times with moderate to large amounts of loose stool. Patient states she was having abdominal cramping and bloating during those episodes. Patient currently denies nausea, vomiting, abd pain or cramping, fever, or chills this morning. She did not eat any breakfast. She would like to advance diet in hopes of discharge. Objective Appearance: Positive Well-appearing, No Apparent Distress and Alert and Oriented x3 Chest/Lungs: Positive Symmetrical With Equal Breath Sounds and Clear to Auscultation Bilaterally; Negative Rales, Rhonci or Wheezes Heart: Positive RRR and Pulses Normal GI/: Positive Soft and Bowel Sounds Normal; Negative Nontender, No Distention, Tender, Mass, Rigidity or Rebound Tenderness Musculoskeletal: Positive Not Examined Neurological: Positive Alert and Oriented Vital Signs Vital Signs: Vital Signs: Last 24 Hours 08/07/25 12:00 08/07/25 13:00 08/07/25 13:00 Temperature Temperature Source Pulse Rate Respiratory Rate Blood Pressure Blood Pressure Mean Blood Pressure Location Blood Pressure Position O2 Sat by Pulse Oximetry Oxygen Delivery Method Room Air Room Air Telemetry Type Remote Telemetry Telemetry Monitoring Continues Telemetry Heart Rate 95 EKG MA Interval 0.16 EKG QRS Interval 0.08 Telemetry Strip Reading SR 08/07/25 14:00 08/07/25 14:00 08/07/25 15:00 Temperature 96.0 F L Temperature Source Tympanic Pulse Rate 98 Respiratory Rate 20 Blood Pressure 122/72 Blood Pressure Mean 88 Blood Pressure Location Left Arm Blood Pressure Position Supine O2 Sat by Pulse Oximetry 100 Oxygen Delivery Method Room Air Room Air Room Air Telemetry Type Telemetry Monitoring Telemetry Heart Rate EKG MA Interval EKG QRS Interval Telemetry Strip Reading 08/07/25 16:00 08/07/25 17:00 08/07/25 18:00 Temperature Temperature Source Pulse Rate Respiratory Rate Blood Pressure Blood Pressure Mean Blood Pressure Location Blood Pressure Position O2 Sat by Pulse Oximetry Oxygen Delivery Method Room Air Room Air Room Air Telemetry Type Telemetry Monitoring Telemetry Heart Rate EKG MA Interval EKG QRS Interval Telemetry Strip Reading 08/07/25 18:00 08/07/25 19:00 08/07/25 19:00 Temperature 97.3 F L Temperature Source Tympanic Pulse Rate 86 Respiratory Rate 18 Blood Pressure 149/80 H Blood Pressure Mean 103 Blood Pressure Location Right Arm Blood Pressure Position Supine O2 Sat by Pulse Oximetry 94 L Oxygen Delivery Method Room Air Room Air Telemetry Type Remote Telemetry Telemetry Monitoring Continues Telemetry Heart Rate 76 EKG MA Interval 0.18 EKG QRS Interval 0.08 Telemetry Strip Reading SR 08/07/25 19:34 08/07/25 20:00 08/07/25 20:57 Temperature Temperature Source Pulse Rate Respiratory Rate Blood Pressure Blood Pressure Mean Blood Pressure Location Blood Pressure Position O2 Sat by Pulse Oximetry Oxygen Delivery Method Room Air Room Air Room Air Telemetry Type Telemetry Monitoring Telemetry Heart Rate EKG MA Interval EKG QRS Interval Telemetry Strip Reading 08/07/25 21:14 08/07/25 22:00 08/07/25 23:00 Temperature 98.3 F Temperature Source Tympanic Pulse Rate 96 Respiratory Rate Blood Pressure 142/71 H Blood Pressure Mean 94 Blood Pressure Location Right Arm Blood Pressure Position Supine O2 Sat by Pulse Oximetry 97 Oxygen Delivery Method Room Air Room Air Room Air Telemetry Type Telemetry Monitoring Telemetry Heart Rate EKG MA Interval EKG QRS Interval Telemetry Strip Reading 08/07/25 23:55 08/08/25 00:28 08/08/25 00:30 Temperature Temperature Source Pulse Rate Respiratory Rate Blood Pressure Blood Pressure Mean Blood Pressure Location Blood Pressure Position O2 Sat by Pulse Oximetry Oxygen Delivery Method Room Air Room Air Telemetry Type Remote Telemetry Telemetry Monitoring Continues Telemetry Heart Rate 82 EKG MA Interval 0.16 EKG QRS Interval 0.09 Telemetry Strip Reading SR 08/08/25 02:00 08/08/25 02:00 08/08/25 03:00 Temperature 97.9 F Temperature Source Temporal Artery Scan Pulse Rate 96 Respiratory Rate 18 Blood Pressure 136/65 Blood Pressure Mean 88 Blood Pressure Location Right Arm Blood Pressure Position Supine O2 Sat by Pulse Oximetry 99 Oxygen Delivery Method Room Air Room Air Room Air Telemetry Type Telemetry Monitoring Telemetry Heart Rate EKG MA Interval EKG QRS Interval Telemetry Strip Reading 08/08/25 04:00 08/08/25 05:00 08/08/25 05:15 Temperature 97.7 F Temperature Source Temporal Artery Scan Pulse Rate 100 Respiratory Rate 18 Blood Pressure 127/69 Blood Pressure Mean 88 Blood Pressure Location Right Arm Blood Pressure Position Supine O2 Sat by Pulse Oximetry 98 Oxygen Delivery Method Room Air Room Air Room Air Telemetry Type Telemetry Monitoring Telemetry Heart Rate EKG MA Interval EKG QRS Interval Telemetry Strip Reading 08/08/25 05:47 08/08/25 07:00 08/08/25 08:00 Temperature Temperature Source Pulse Rate Respiratory Rate Blood Pressure Blood Pressure Mean Blood Pressure Location Blood Pressure Position O2 Sat by Pulse Oximetry Oxygen Delivery Method Room Air Room Air Room Air Telemetry Type Telemetry Monitoring Telemetry Heart Rate EKG MA Interval EKG QRS Interval Telemetry Strip Reading 08/08/25 09:00 08/08/25 10:00 08/08/25 10:15 Temperature Temperature Source Pulse Rate Respiratory Rate Blood Pressure Blood Pressure Mean Blood Pressure Location Blood Pressure Position O2 Sat by Pulse Oximetry Oxygen Delivery Method Room Air Room Air Room Air Telemetry Type Telemetry Monitoring Telemetry Heart Rate EKG MA Interval EKG QRS Interval Telemetry Strip Reading Lab Results Lab Results: Lab Results: Last 24 Hours 08/08/25 05:09 WBC 3.60 L RBC 3.78 L Hgb 12.3 Hct 36.4 L MCV 96.3 MCH 32.5 H MCHC 33.8 RDW Coeff of Jose 12.9 Plt Count 182 Neutrophils % (Manual) 49.0 Band Neutrophils % 15.0 H Lymphocytes % (Manual) 12.0 Monocytes % (Manual) 21.0 H Eosinophils % (Manual) 1.0 Metamyelocytes % 2.0 Anisocytosis Not present Sodium 131.8 L Potassium 2.97 L Chloride 110.2 H Carbon Dioxide 14.9 L Anion Gap 9.67 BUN 16.5 Creatinine 1.20 Estimated GFR (MDRD) 44.00 BUN/Creatinine Ratio 13.75 Glucose 124.2 H Calcium 8.74 Total Bilirubin 0.72 AST 27.3 ALT 16.2 Alkaline Phosphatase 66.7 Total Protein 6.54 Albumin 3.76 Globulin 2.78 Albumin/Globulin Ratio 1.35 Additional Comments Additional Comments: I have independently reviewed and interpreted the labs/EKGs/imaging ordered during this hospital stay. I have reviewed outside records that are available in our EMR that pertain to medical stay including imaging/notes/labs from previous visits. Active Medications Active Medications: Medications Generic Name Dose Route Start Last Admin Trade Name Freq PRN Reason Stop Dose Admin Acetaminophen 650 mg 08/06/25 20:28 Acetaminophen 325 Mg Tablet PO Q4H PRN Mild Pain Amitriptyline HCl 50 mg 08/06/25 21:00 08/07/25 20:03 Amitriptyline Hcl 25 Mg Tablet PO 50 mg BEDTIME KARI Administration Amlodipine Besylate 2.5 mg 08/06/25 21:00 08/07/25 20:03 Amlodipine Besylate 5 Mg Tablet PO 2.5 mg BEDTIME KARI Administration Bismuth Subsalicylate 262 mg 08/06/25 20:42 08/07/25 15:04 Bismuth Subsalicylate 262 Mg Tab.Chew PO 262 mg Q6H PRN Administration Diarrhea Sodium Chloride 1,000 mls @ 100 mls/hr 08/06/25 20:30 08/08/25 02:29 Sodium Chloride IV 100 mls/hr .Q10H KARI Administration Loperamide HCl 2 mg 08/06/25 20:42 08/08/25 03:19 Loperamide Hcl 2 Mg Tablet PO 2 mg AFTER LOOSE STOOLS PRN Administration Diarrhea Ondansetron HCl 4 mg 08/06/25 20:05 08/08/25 02:22 Ondansetron Hcl/Pf 4 Mg/2 Ml Sdv IVP 4 mg Q6H PRN Administration Nausea / Vomiting Pantoprazole Sodium 40 mg 08/06/25 21:00 08/07/25 20:02 Pantoprazole Sodium 40 Mg Tablet.Dr PO 40 mg BEDTIME KARI Administration Rivaroxaban 10 mg 08/06/25 21:00 08/07/25 20:02 Rivaroxaban 10 Mg Tablet PO 10 mg BEDTIME KARI Administration Rosuvastatin Calcium 5 mg 08/06/25 21:00 08/07/25 20:03 Rosuvastatin Calcium 10 Mg Tablet PO 5 mg BEDTIME KARI Administration Sodium Chloride 1 syr 08/06/25 15:09 0.9% Sodium Chloride 10 Ml Disp.Syrin IVF PRN PRN To flush IV Plan Plan: Plan 1. Acute gastroenteritis - IV fluids, imodium PRN, zofran PRN, clear liquids. Will try advancing to soft diet at dinner. CT a/p was nonspecific with signs of enterocolitis. C diff negative. O&P and stool culture pending; preliminary is negative. No recent travel, abx, or sick contacts. 2. Acute kidney injury, stage 1 due to dehydration - Improved. BUN and creatinine back to baseline. NS at 100mL/hr 3. Hypokalemia - replaced with 40meq of Kdur 4. Hyponatremia - due to dehydration. Improved. Continue NS 5. GERD - Continue home meds 6. Hyperlipidemia - Continue home meds 7. Hypertension - Continue home meds 8. History of DVT - Continue home meds 9. Insomnia - Continue home meds DVT Prophylaxis: Xarelto Review Statement Review Statement: I have personally discussed and reviewed the patient's visit/currently labs/imaging/decision making with Dr. Vallejo, my supervising attending. Greater that 50 minutes spent with patient, 50% of the time spent with this patient was devoted to counseling and coordination of care.
[2025-08-09 05:29] LABS: IMMATURE GRANULOCYTE # (AUTO) 0.0 (0.0-1.0); IMMATURE GRANULOCYTE % (AUTO) 0.2 % (0.0-5.0); RDW COEFFICIENT OF VARIATION 13.1 % (11.6-14.8)
[2025-08-09 05:47] LABS: CREATININE 1.04 mg/dL (0.60-1.30)
[2025-08-09] MEDS: SODIUM CHLORIDE 0.9%-KCL 20 MEQ 1,000 ML IV SCH (09:21)
[2025-08-09] MEDS: K-DUR PO ONE (09:21)
--- NOTE | 2025-08-09 10:49 | PCM.PROG ---
Date/Time Seen Date Seen by Provider: 08/09/25 Time Seen by Provider: 09:00 Provider Provider[facility] J[facility]VIS FR[facility] Chief Complaint Chief Complaint: DEHYDRATION, DIARRHEA, WES Subjective Subjective: Continues to have diarrhea stools. Able to tolerate PO but diarrhea persists. States able just feels it is constantly rumbling and unwell. Denies any note of blood in stool. Objective Appearance: Positive No Apparent Distress, Alert and Oriented x3 and Ill- Appearing Chest/Lungs: Positive Symmetrical With Equal Breath Sounds, Clear to Auscultation Bilaterally and Good Air Movement all 4 Lung [place]; Negative Rales, Rhonci or Wheezes Heart: Positive RRR and Pulses Normal GI/: Positive Soft, Nontender, No Distention and Bowel Sounds Hyperactive Musculoskeletal: Positive Not Examined Neurological: Positive Sensation Intact, Motor intact, Reflexes Intact, Alert, Oriented and Other (generalized weakness) Vital Signs Vital Signs: Vital Signs: Last 24 Hours 08/08/25 12:00 08/08/25 13:00 08/08/25 13:00 Temperature Temperature Source Pulse Rate Respiratory Rate Blood Pressure Blood Pressure Mean Blood Pressure Location Blood Pressure Position O2 Sat by Pulse Oximetry Oxygen Delivery Method Room Air Room Air Height Weight Telemetry Type Remote Telemetry Telemetry Monitoring Continues Telemetry Heart Rate 92 EKG MS Interval 0.18 EKG QRS Interval 0.08 Telemetry Strip Reading SR 08/08/25 13:55 08/08/25 13:55 08/08/25 15:00 Temperature 96.9 F L Temperature Source Temporal Artery Scan Pulse Rate 96 Respiratory Rate 18 Blood Pressure 130/74 Blood Pressure Mean 92 Blood Pressure Location Right Arm Blood Pressure Position Supine O2 Sat by Pulse Oximetry 99 Oxygen Delivery Method Room Air Room Air Room Air Height Weight Telemetry Type Telemetry Monitoring Telemetry Heart Rate EKG MS Interval EKG QRS Interval Telemetry Strip Reading 08/08/25 15:52 08/08/25 16:35 08/08/25 17:11 Temperature Temperature Source Pulse Rate Respiratory Rate Blood Pressure Blood Pressure Mean Blood Pressure Location Blood Pressure Position O2 Sat by Pulse Oximetry Oxygen Delivery Method Room Air Room Air Room Air Height Weight Telemetry Type Telemetry Monitoring Telemetry Heart Rate EKG MS Interval EKG QRS Interval Telemetry Strip Reading 08/08/25 18:00 08/08/25 19:00 08/08/25 19:00 Temperature 96.7 F L Temperature Source Temporal Artery Scan Pulse Rate 71 Respiratory Rate 18 Blood Pressure 133/72 Blood Pressure Mean 92 Blood Pressure Location Right Arm Blood Pressure Position Supine O2 Sat by Pulse Oximetry 99 Oxygen Delivery Method Room Air Room Air Height Weight Telemetry Type Remote Telemetry Telemetry Monitoring Continues Telemetry Heart Rate 78 EKG MS Interval 0.18 EKG QRS Interval 0.09 Telemetry Strip Reading SR 08/08/25 19:54 08/08/25 20:00 08/08/25 21:00 Temperature Temperature Source Pulse Rate Respiratory Rate Blood Pressure Blood Pressure Mean Blood Pressure Location Blood Pressure Position O2 Sat by Pulse Oximetry Oxygen Delivery Method Room Air Room Air Room Air Height Weight Telemetry Type Telemetry Monitoring Telemetry Heart Rate EKG MS Interval EKG QRS Interval Telemetry Strip Reading 08/08/25 22:00 08/08/25 22:00 08/08/25 23:00 Temperature 98.1 F Temperature Source Temporal Artery Scan Pulse Rate 67 Respiratory Rate 16 Blood Pressure 142/79 H Blood Pressure Mean 100 Blood Pressure Location Right Arm Blood Pressure Position Supine O2 Sat by Pulse Oximetry 98 Oxygen Delivery Method Room Air Room Air Room Air Height Weight Telemetry Type Telemetry Monitoring Telemetry Heart Rate EKG MS Interval EKG QRS Interval Telemetry Strip Reading 08/09/25 00:00 08/09/25 01:00 08/09/25 01:00 Temperature Temperature Source Pulse Rate Respiratory Rate Blood Pressure Blood Pressure Mean Blood Pressure Location Blood Pressure Position O2 Sat by Pulse Oximetry Oxygen Delivery Method Room Air Room Air Height Weight Telemetry Type Remote Telemetry Telemetry Monitoring Continues Telemetry Heart Rate 62 EKG MS Interval 0.17 EKG QRS Interval 0.06 Telemetry Strip Reading SR 08/09/25 02:00 08/09/25 02:00 08/09/25 03:00 Temperature Temperature Source Pulse Rate 102 H Respiratory Rate Blood Pressure Blood Pressure Mean Blood Pressure Location Blood Pressure Position O2 Sat by Pulse Oximetry Oxygen Delivery Method Room Air Room Air Room Air Height Weight Telemetry Type Telemetry Monitoring Telemetry Heart Rate EKG MS Interval EKG QRS Interval Telemetry Strip Reading 08/09/25 04:00 08/09/25 05:00 08/09/25 05:40 Temperature 98.2 F Temperature Source Temporal Artery Scan Pulse Rate 79 Respiratory Rate 16 Blood Pressure 118/67 Blood Pressure Mean 84 Blood Pressure Location Left Arm Blood Pressure Position Supine O2 Sat by Pulse Oximetry 100 Oxygen Delivery Method Room Air Room Air Room Air Height Weight Telemetry Type Telemetry Monitoring Telemetry Heart Rate EKG MS Interval EKG QRS Interval Telemetry Strip Reading 08/09/25 06:00 08/09/25 07:00 08/09/25 07:00 Temperature Temperature Source Pulse Rate Respiratory Rate Blood Pressure Blood Pressure Mean Blood Pressure Location Blood Pressure Position O2 Sat by Pulse Oximetry Oxygen Delivery Method Room Air Room Air Height Weight Telemetry Type Remote Telemetry Telemetry Monitoring Continues Telemetry Heart Rate 72 EKG MS Interval 0.15 EKG QRS Interval 0.08 Telemetry Strip Reading SR 08/09/25 08:00 08/09/25 09:00 08/09/25 10:00 Temperature Temperature Source Pulse Rate Respiratory Rate Blood Pressure Blood Pressure Mean Blood Pressure Location Blood Pressure Position O2 Sat by Pulse Oximetry Oxygen Delivery Method Room Air Room Air Room Air Height Weight Telemetry Type Telemetry Monitoring Telemetry Heart Rate EKG MS Interval EKG QRS Interval Telemetry Strip Reading 08/09/25 10:00 08/09/25 10:02 08/09/25 10:39 Temperature 97.9 F Temperature Source Temporal Artery Scan Pulse Rate 70 Respiratory Rate 16 Blood Pressure 95/52 L Blood Pressure Mean 66 Blood Pressure Location Right Arm Blood Pressure Position O2 Sat by Pulse Oximetry 99 Oxygen Delivery Method Room Air Room Air Height 5 ft 8 in Weight 64.7 kg Telemetry Type Telemetry Monitoring Telemetry Heart Rate EKG MS Interval EKG QRS Interval Telemetry Strip Reading Lab Results Lab Results: Lab Results: Last 24 Hours 08/09/25 05:23 WBC 4.18 L RBC 3.49 L Hgb 11.3 L Hct 33.3 L MCV 95.4 MCH 32.4 H MCHC 33.9 RDW Coeff of Jose 13.1 Plt Count 174 Immature Gran % (Auto) 0.2 Neut % (Auto) 47.2 Lymph % (Auto) 34.7 [place] % (Auto) 14.8 H Eos % (Auto) 2.9 Baso % (Auto) 0.2 Neut # (Auto) 2.0 Lymph # (Auto) 1.5 [place] # (Auto) 0.6 Eos # (Auto) 0.1 Baso # (Auto) 0.0 Immature Gran # (Auto) 0.0 Sodium 131.9 L Potassium 2.95 L Chloride 111.5 H Carbon Dioxide 16.3 L Anion Gap 7.05 BUN 11.3 Creatinine 1.04 Estimated GFR (MDRD) 52.00 BUN/Creatinine Ratio 10.86 Glucose 94.7 Calcium 8.56 Total Bilirubin 0.77 AST 24.9 ALT 15.9 Alkaline Phosphatase 55.0 Total Protein 5.73 L Albumin 3.14 L Globulin 2.59 Albumin/Globulin Ratio 1.21 Additional Comments Additional Comments: I have independently reviewed and interpreted the labs/EKGs/imaging ordered during this hospital stay. I have reviewed outside records that are available in our EMR that pertain to medical stay including imaging/notes/labs from previous visits. Active Medications Active Medications: Medications Generic Name Dose Route Start Last Admin Trade Name Freq PRN Reason Stop Dose Admin Acetaminophen 650 mg 08/06/25 20:28 Acetaminophen 325 Mg Tablet PO Q4H PRN Mild Pain Amitriptyline HCl 50 mg 08/06/25 21:00 08/08/25 20:48 Amitriptyline Hcl 25 Mg Tablet PO 50 mg BEDTIME KARI Administration Amlodipine Besylate 2.5 mg 08/06/25 21:00 08/08/25 20:48 Amlodipine Besylate 5 Mg Tablet PO 2.5 mg BEDTIME KARI Administration Bismuth Subsalicylate 262 mg 08/06/25 20:42 08/07/25 15:04 Bismuth Subsalicylate 262 Mg Tab.Chew PO 262 mg Q6H PRN Administration Diarrhea Potassium Chloride/Sodium Chloride 1,000 mls @ 100 mls/hr 08/09/25 09:00 08/09/25 09:21 Sodium Chloride 0.9%-Kcl 20 Meq IV 100 mls/hr .Q10H KARI Administration Loperamide HCl 2 mg 08/06/25 20:42 08/08/25 03:19 Loperamide Hcl 2 Mg Tablet PO 2 mg AFTER LOOSE STOOLS PRN Administration Diarrhea Ondansetron HCl 4 mg 08/06/25 20:05 08/08/25 02:22 Ondansetron Hcl/Pf 4 Mg/2 Ml Sdv IVP 4 mg Q6H PRN Administration Nausea / Vomiting Pantoprazole Sodium 40 mg 08/06/25 21:00 08/08/25 20:48 Pantoprazole Sodium 40 Mg Tablet.Dr PO 40 mg On Hold: 08/09/25 10:44 BEDTIME KARI Administration Rivaroxaban 10 mg 08/06/25 21:00 08/08/25 20:48 Rivaroxaban 10 Mg Tablet PO 10 mg BEDTIME KARI Administration Rosuvastatin Calcium 5 mg 08/06/25 21:00 08/08/25 20:48 Rosuvastatin Calcium 10 Mg Tablet PO 5 mg BEDTIME KARI Administration Sodium Chloride 1 syr 08/06/25 15:09 0.9% Sodium Chloride 10 Ml Disp.Syrin IVF PRN PRN To flush IV Plan Plan: 1. Acute gastroenteritis - Continues, IV fluids, imodium PRN, zofran PRN, CT a/p was nonspecific with signs of enterocolitis. C diff negative. GI Panel negative. O&P pending. No recent travel, abx, or sick contacts. Add pepcid and protonix IV 2. Acute kidney injury, stage 1 due to dehydration - Resolved, BUN and creatinine back to baseline. Will stop fluids when able 3. Hypokalemia - replaced with 40meq of Kdur, added KCL to IV fluids 4. Hyponatremia - due to dehydration, continues, mildly improving, Continue NS+KCL 5. GERD - Continue home meds 6. Hyperlipidemia - Continue home meds 7. Hypertension - Continue home meds 8. History of DVT - Continue home meds 9. Insomnia - Continue home meds DVT Prophylaxis: Xarelto Dispo: Admitted to IP due to continued diarrhea and electrolyte imbalances. Patient high risk for decline when returning home. Review Statement Review Statement: I have personally discussed and reviewed the patient's visit/currently labs/imaging/decision making with Dr. Vallejo, my supervising attending. Greater that 50 minutes spent with patient, 50% of the time spent with this patient was devoted to counseling and coordination of care.
[2025-08-09] MEDS: PEPCID IVP SCH (11:50)
[2025-08-09] MEDS: PROTONIX IVP SCH (11:51)
[2025-08-10 05:52] LABS: IMMATURE GRANULOCYTE # (AUTO) 0.0 (0.0-1.0); IMMATURE GRANULOCYTE % (AUTO) 0.4 % (0.0-5.0); RDW COEFFICIENT OF VARIATION 13.1 % (11.6-14.8)
[2025-08-10 06:07] LABS: CREATININE 0.81 mg/dL (0.60-1.30)
[2025-08-10 07:44] VITALS: PULSE 80
[2025-08-10] MEDS: K-DUR PO ONE (08:46)
[2025-08-10] MEDS: BENTYL IM ONE (10:31)
--- NOTE | 2025-08-10 10:45 | DI ---
EXAM: AP VIEW OF ABDOMEN 08/10/2025 HISTORY: Abdominal pain. Distension. COMPARISON: CT chest 07/29/2025 FINDINGS/impression: Regional soft tissue and osseous structures are intact. Mild gaseous distension of the colon, nonspecific. Suture line in the right lower quadrant. No free intraperitoneal air. Degenerative changes. Scoliosis. IMPRESSION: Mild gaseous distension of the colon, nonspecific.
[2025-08-10 12:58] LABS: CREATININE 0.83 mg/dL (0.60-1.30)
--- NOTE | 2025-08-10 13:15 | DCSUM ---
Admission Date Admission Date: 08/06/25 Discharge Date Discharge Date: 08/10/25 Admission Diagnosis Admission Diagnosis: 1. Acute gastroenteritis 2. Acute kidney injury, stage 1 due to dehydration 3. Hypokalemia 4. Hyponatremia Discharge Diagnosis Discharge Diagnosis: 1. Acute gastroenteritis - Improving, C diff negative. GI Panel negative. 2. Acute kidney injury, stage 1 due to dehydration - Resolved 3. Hypokalemia - Resolved, replacement given 4. Hyponatremia - Resolved 5. GERD - Chronic, stable 6. Hyperlipidemia - Chronic, stable 7. Hypertension - Chronic, stable 8. History of DVT - Stable 9. Insomnia - Chronic Hospital Provider Hospital Provider: JARVIS FRANCO, [facility] [place] [facility] Primary Care Physician: CECE WARNER Summary of History and Physical Summary of History and Physical: Patient is a 75 year old female with a PMH of colon cancer, GERD, DVT, and hyperlipidemia. She originally came to the ER on 08/05 due to nausea, vomiting, and watery diarrhea for 5 days. Labs were normal and abdominal CT showed enterocolitis. Since she was stable she was discharged. She returned to the ER the next day on 08/06 with continuing symptoms along with dizziness and weakness. Labs now showed low sodium, low potassium, and an WES. She was admitted to med surg. Last night she continued to have diarrhea, getting up every 15-30 minutes to use the bathroom. She had one episode of vomiting at 1 am. She was able to fall asleep around 1:30 am and had bowel incontinence throughout the night. This morning she has had 4 episodes of watery diarrhea. She denies nausea, abdominal pain, fever, and chills. Hospital Course Subjective: During stay, patient received IV fluids for treatment of WES and gastroenteritis. Sodium slowly improved and returned to normal limits today. Renal function returned to normal yesterday. CO2 remained low but slowly improved. Near normal today. Potassium required continual replacement due to continued diarrhea causing depletion. Up to 3.47 at discharge. Developed bloating and gas this am. KUB obtained and showed mild gas distention. Bowel sounds active. Passing gas and had diarrhea stool this am. Tolerating PO. No vomiting. No fever. Also received protonix and pepcid which helped the rumbling/gurgling she initially felt. Treated gas with bentyl and rx sent for home use. Discussed bland diet and importance of hydration. Follow-up with PCP. Appearance: Pleasant, No Apparent Distress and Alert HEENT: MMM, Supple and No JVD CVS: No Murmur and No Rubs Abdomen: Soft, Non-Tender and Other (mild distention, bowel sounds active) Respiratory: No Dyspnea Extremities: No Edema Vital Signs: Most Recent Vital Signs Temperature 97.6 F 08/10/25 06:00 Temperature Source Temporal Artery Scan 08/10/25 06:00 Temperature Source Infrared 08/06/25 14:44 Pulse Rate 80 08/10/25 07:36 Respiratory Rate 16 08/10/25 07:36 Blood Pressure 120/75 08/10/25 06:00 Blood Pressure Mean 90 08/10/25 06:00 Blood Pressure Left Arm 114/82 08/06/25 20:15 Blood Pressure Location Right Arm 08/10/25 06:00 Blood Pressure Position Supine 08/10/25 06:00 O2 Sat by Pulse Oximetry 96 08/10/25 06:00 Oxygen Delivery Method Room Air 08/10/25 07:36 Height 5 ft 8 in 08/09/25 10:02 Weight 64.7 kg 08/09/25 10:02 Telemetry Type Remote Telemetry 08/10/25 07:00 Telemetry Monitoring Continues 08/10/25 07:00 Telemetry Heart Rate 68 08/10/25 07:00 EKG NJ Interval 0.18 08/10/25 07:00 EKG QRS Interval 0.10 08/10/25 07:00 Telemetry Strip Reading NSR 08/10/25 07:00 Imaging: EXAM: CT ABDOMEN AND PELVIS WITHOUT CONTRAST HISTORY: Nausea, emesis, diarrhea. History of right colon cancer status post resection. TECHNIQUE: CT acquisition of the abdomen and pelvis from the lower thorax through the pelvis without IV contrast administration. 2-D coronal and sagittal reformatted images were obtained from the axial source images. Limited diagnostic sensitivity without contrast. Oral Contrast: None. CT Dose Reduction Techniques Performed: Yes. COMPARISON: 12/24/2017. FINDINGS: CT Abdomen: Lung bases are clear. Calcified plaque in a normal caliber aorta. Gallbladder is surgically absent. No associated biliary ductal dilatation. Postoperative prominence of the common bile duct approximating 11 mm without evidence of choledocholithiasis. Stable nonobstructing left intrarenal calculus. More conspicuous 1.4 cm left renal cortical cyst. The proximal urinary tract otherwise appears unremarkable. Normal caliber fluid-filled loops of small bowel with minimal prominence of the bowel wall. Partial fluid-filled appearance of a normal caliber colon. Changes of right colectomy. Otherwise normal caliber and distribution of intraabdominal bowel without ascites or free air. Abdominal and retroperitoneal contents otherwise appear normal. No adenopathy. Stable degenerative spine changes. CT Pelvis: Distal urinary tract appears unremarkable. Grossly normal appearance of the uterus and adnexal structures. Uncomplicated diverticular changes. Partial fluid-filled appearance of the colon. Otherwise normal caliber and distribution of intrapelvic bowel without ascites or free air. Pelvic and retroperitoneal contents appears stable without adenopathy. Interval approximately 20% uniform loss of vertebral body height at L5. Bone alignment is maintained. Stable degenerative changes. IMPRESSION: 1. Probable components of nonspecific enterocolitis with fluid-filled loops of small and large bowel. No evidence of mechanical bowel obstruction, ascites or free air. 2. Stable changes of right colectomy with an intact right abdominal bowel anastomosis. 3. Stable nonobstructive left nephrolithiasis with more conspicuous 1.4 cm probable simple left renal cortical cyst. 4. Interval appearance of a uniform approximately 20% compression deformity at L5 with chronic appearing bone changes. 5. Calcified atherosclerosis without additional acute process identified. Lab Results Last 24 Hours: 08/10/25 08/10/25 12:42 05:37 WBC 5.28 RBC 3.47 L Hgb 11.2 L Hct 32.1 L MCV 92.5 MCH 32.3 H MCHC 34.9 RDW Coeff of Jose 13.1 Plt Count 210 Immature Gran % (Auto) 0.4 Neut % (Auto) 51.4 Lymph % (Auto) 34.8 Johnson % (Auto) 12.1 H Eos % (Auto) 0.9 Baso % (Auto) 0.4 Neut # (Auto) 2.7 Lymph # (Auto) 1.8 Johnson # (Auto) 0.6 Eos # (Auto) 0.1 Baso # (Auto) 0.0 Immature Gran # (Auto) 0.0 Sodium 136.7 133.1 L Potassium 3.47 L 3.15 L Chloride 112.2 H 111.5 H Carbon Dioxide 20.6 L 18.3 L Anion Gap 7.37 6.45 BUN 6.3 L 7.0 Creatinine 0.83 0.81 Estimated GFR (MDRD) 67.00 69.00 BUN/Creatinine Ratio 7.59 8.64 Glucose 123.7 H 99.1 Calcium 8.45 8.13 L Total Bilirubin 0.67 AST 24.7 ALT 14.4 Alkaline Phosphatase 56.5 Total Protein 5.46 L Albumin 2.92 L Globulin 2.54 Albumin/Globulin Ratio 1.14 Discharge Instructions Discharge Planning: Discharge Planning > 40 minutes If patient is discharged with left ventricular systolic dysfunction: na Discharged with a beta scarlett? [] If no, why not? [] Discharged with an torsten/arb? [] If no, why not? [] Discharge Medications: Medications at Discharge (Home Meds & RX) gwrzcwvw-ehn-miiyc acid 0.4 mg-lycopene 300 mcg-lutein 250 mcg tablet (Centrum Silver) 1 tab PO BEDTIME 10/23/16 amitriptyline 50 mg tablet 50 mg PO QHS #90 tabs 05/02/21 rosuvastatin 20 mg tablet See Rx Instructions .Route .COMPLEX #90 tabs 05/02/21 amlodipine 2.5 mg tablet 2.5 mg PO BEDTIME 08/05/25 pantoprazole 40 mg tablet,delayed release 40 mg PO BEDTIME 08/06/25 rivaroxaban 10 mg tablet (Xarelto) 10 mg PO BEDTIME 08/06/25 dicyclomine 20 mg tablet 20 mg PO TID PRN abdominal pain #30 tabs 08/10/25 Discharge Plan Discharge Discharge Orders: Discharge Patient (ONCE); Ordered 08/10/25 Ordered By: YASEMIN SUH Activity Restrictions/Additional Instructions: Diagnosis: Enteritis, Hypokalemia, Hyponatremia, Acute Kidney Injury Diet: [place], advance as tolerated. Drink plenty of water as well as Gatorade or Powerade. Activity as tolerated. Medications: [facility] 1 * Dicyclomine - may take up to 3 times a day for gas relief/bloating Follow-up with primary care provider. Instructions: Acute Kidney Injury (GEN), Hyponatremia (GEN), Hypokalemia (GEN), Enteritis (GEN) Care Plan Goals: Problem: Diarrhea Goal: Achieve optimal elimination pattern Instructions: Evaluate causative factors of diarrhea Stool Assessment Perineal skin care Problem: Nausea Goal #1: Maintain adequate fluid volume Instructions: Monitor for signs and symptoms of dehydration Monitor I/O as needed Goal #2: Relief of nausea Instructions: Medication as ordered Position to prevent aspiration Patient Disposition: HOME SELF-CARE Prescriptions: New dicyclomine 20 mg tablet 20 mg PO TID PRN (Reason: abdominal pain) Qty: 30 0RF Rx Instructions: Take up three times a day as needed for bloating/gas Continued pantoprazole 40 mg tablet,delayed release (DR/EC) 40 mg PO BEDTIME Rx Instructions: TAKE ONE TABLET DAILY BEFORE MEALS Xarelto 10 mg tablet 10 mg PO BEDTIME Centrum Silver 1 EACH tablet 1 tab PO BEDTIME amlodipine 2.5 mg tablet 2.5 mg PO BEDTIME amitriptyline 50 mg tablet 50 mg PO QHS Qty: 90 1RF rosuvastatin 20 mg tablet See Rx Instructions .ROUTE .COMPLEX Qty: 90 0RF Dose Instruction: TAKE 1/2 TABLET AT BEDTIME (NEED LABS FOR REFILLS) Rx Instructions: TAKE 1/2 TABLET AT BEDTIME Did you review [place] [employer] for ALL controlled substances?: No Discussed opioids are addictive and Narcan is available by prescription or from pharmacy.: No Condition: Stable Referrals: CECE WARNER [Primary Care Provider, CLINIC LPN] - 08/16/25 10:30 am
[2025-08-10] MEDS: K-DUR PO STA (13:32)
[2025-08-10 13:49] VITALS: BP 131/75; RESP 18; TEMP 98.8
== END 2025-08-10 13:55 | disposition home or self-care (01) | DRG 392 ==
LOC: ED 14:40 → MEDSURG B 14:40
PROVIDERS: ADMIT Hospitalist; ATTEND Nurse Practitioner Family